=== PATIENT | male | born 2000 | race Caucasian/White ===

== ENCOUNTER 2021-01-27 12:24 | Observation (INO) | payer MEDICAID, SELFPAY ==
[2021-01-27 12:30] VITALS: BP 139/92; PULSE 114; RESP 15; TEMP 36.4; O2SAT 97; BMI 24.0
--- NOTE | 2021-01-27 12:54 | ED_ITS ---
HPI - Psych General: Chief Complaint: Psychiatric Symptoms Stated Complaint: 96 Time Seen by Provider: 01/27/21 12:41 Source: police Mode of arrival: ambulatory Limitations: no limitations History of Present Illness: HPI Narrative: 20-year-old male patient presents to the emergency department with court order for 96-hour hold. Patient states he was at a [facility] area in [facility] with his girlfriend yesterday, when him and his girlfriend got into an argument which led to bystander calling the police due to yelling and screaming. He told his girlfriend he was going to hurt himself. Affidavit/court order states patient was going to either kill himself or someone else, that he had a gun in the vehicle. He was picked up by [facility] at approximately 6 PM last night. Him and his girlfriend have been together for 7 years. He is not suicidal today. He denies homicidal or suicidal ideation plans or thoughts upon exam. 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 Kidney transplant completed 03/20/2014; kidney biopsy completed 11/25/2020 due to elevated antibodies; biopsy results were negative for acute findings. He states continues on transplant medication and has received them today. He denies fever chills, denies abdominal pain nausea vomiting, denies auditory or visual hallucinations. He reports previous psychiatric admission as a child due to major depression disorder/bipolar disorder. He does not take psychiatric medication. History of same: No Relieving factors: none Exacerbating factors: none Associated psychiatric symptoms: none Associated symptoms: Reports no associated symptoms; Deny depression Treatments prior to arrival: placed on mental health hold Review of Systems General: Reports: 10 or more systems reviewed and unremarkable except in HPI and below Const: Denies: fever(s), chills or diaphoresis Eyes: Denies: blurry vision or eye redness ENMT: Denies: throat pain, dental pain or disequilibrium Card: Denies: chest pain, palpitations or irregular heart rhythm Resp: Denies: dyspnea, productive cough, non-productive cough or wheezing GI: Denies: abdominal pain, nausea or vomiting : Denies: dysuria Musc: Denies: back pain Skin/Breast: Denies: rash or pruritus Neuro: Denies: headache(s), weakness in extremities or behavioral changes Psych: Denies: anxiety, depression, mood swings, panic attacks, sleeping more, change in appetite, irritability or difficulty concentrating [place]/Lymph: Denies: easy bruising PFSH ED PFSH: Medical History (Updated 01/28/21 @ 07:20 by SANDY Pitt) Bipolar disorder Major depressive disorder Surgical History Kidney transplant recipient Physical Exam Const: COMMON NORMALS: no acute distress, patient oriented x3, healthy appearing, alert and well nourished GENERAL APPEARANCE: cooperative, comfortable, well kempt, well developed and well hydrated NUTRITIONAL APPEARANCE: thin ORIENTATION/CONSCIOUSNESS: Yes awake, Yes oriented to person, Yes oriented to place and Yes oriented to time HENMT: COMMON NORMALS: normocephalic, atraumatic, Normal external nose present and moist oral mucous membranes HEAD & SCALP: normal to inspection, normocephalic and atraumatic FACE & SINUS: normal facial exam and face symmetric NOSE: Normal external nose present MOUTH: Normal oral and palatal mucosa present, lip normal and tongue normal THROAT: posterior oropharynx normal, tonsils normal and uvula midline Eye: COMMON NORMALS: Equal, round and reactive pupils present and EOMs intact bilaterally GENERAL EYE: appearance normal, both eyes and all related structures PUPIL: Yes Equal, round and reactive pupils present Neck/C-Spine: COMMON NORMALS: full ROM and no lymphadenopathy GENERAL: Yes normal visual inspection and Yes trachea midline CERVICAL SPINE: Yes cervical ROM normal Lymph: LYMPHATIC: no lymphadenopathy noted Chest: COMMONS NORMALS: normal inspection of the chest and normal palpation of entire chest wall Resp: COMMON NORMALS: normal respiratory effort, No retractions, No use of accessory muscles and clear to auscultation bilaterally EFFORT & INSPECTION: Yes able to speak in complete sentences AUSCULTATION: clear to auscultation bilaterally Cardio: COMMON NORMALS: regular rate, regular rhythm, S1 normal heart sound present, S2 normal heart sound present and Peripheral pulses 2+ throughout RATE: regular rate RHYTHM: regular rhythm HEART SOUNDS: S1 normal heart sound present and S2 normal heart sound present PERIPHERAL PULSES: Peripheral pulses 2+ throughout GI: COMMON NORMALS: Normal to inspection, nondistended, normoactive bowel sounds present, Soft to palpation and non-tender INSPECTION: Yes normal to inspection, No abdominal wall ecchymosis, No abdominal distension, No central obesity and Yes scar PALPATION: Yes Soft to palpation : COMMON NORMALS: Yes no CVA tenderness BLADDER/KIDNEY EXAM: Yes no CVA tenderness Back/Pelvis: COMMON NORMALS: no CVA tenderness, thoracic and lumbar spine normal to inspection, no thoracic nor lumbar tenderness, thoraco-lumbar ROM normal and straight leg raise negative bilaterally Extremity: COMMON NORMALS: normal to inspection, full ROM, capillary refill normal, no joint enlargement, no clubbing, cyanosis or edema, no calf tenderness and no pedal edema GENERAL: Yes normal exam except as noted Neuro: NAYELY COMA SCALE: document GCS findings Nayely coma scale eye opening: Spontaneous [place] coma scale verbal response: Orientated Nayely coma scale motor response: Obey commands Nayely coma scale total score: 15 COMMON NORMALS: patient oriented x3 and no focal motor deficits SENSORIUM/ORIENTATION: Yes alert, Yes oriented to person, Yes oriented to place and Yes oriented to time SPEECH: speech normal GAIT: Yes Normal gait present MOTOR EXAM: 5/5 motor strength present throughout Psych: COMMON NORMALS: mental status grossly normal, Normal thought process present, cooperative, normal affect, speech normal, activity/motor behavior normal, denies hallucinations, denies homicidal ideation and denies suicidal ideation APPEARANCE: Yes grossly normal and Yes well kempt ATTITUDE: Yes calm ACTIVITY/MOTOR BEHAVIOR: Yes appropriate eye contact SPEECH: Yes normal speech MOOD & AFFECT: No depressed mood, No anxious, No irritable, No sad, No tearful, No fearful and No Labile affect present THOUGHT PROCESS: Normal thought process present THOUGHT CONTENT: Yes Normal thought content present ATTENTION/CONCENTRATION: Yes attention grossly intact MEMORY/COGNITION: Yes memory grossly intact INSIGHT: Good insight present (Psych) JUDGEMENT: Good judgement present (Psych) Skin: COMMON NORMALS: no rashes or lesions noted, no wounds, turgor normal, no petechiae and no mottling GENERAL SKIN EXAM: no rashes or lesions noted, elasticity normal and turgor normal MDM - Psych Lab Data: Labs: Lab Results 01/27/21 01/27/21 01/27/21 Range/Units 12:43 12:43 12:43 WBC 10.6 H (4.0-10.0) 10^3/ uL RBC 4.55 (4.1-5.3) 10^6/u L Hgb 14.3 (11.7-16.6) g/dL Hct 42.9 (42.0-52.0) % MCV 94.3 H (80-94) fL MCH 31.4 (28.0-34.0) pg MCHC 33.3 (30.0-36.0) g/dL RDW 13.3 (12.1-15.1) % Plt Count 309 (130-400) 10^3/c mm MPV 10.1 (7.4-10.4) fL Neut % (Auto) 78.7 % Lymph % (Auto) 10.9 % [place] % (Auto) 9.4 % Eos % (Auto) 0.3 % Baso % (Auto) 0.1 % Neut # (Auto) 8.36 H (1.8-7.7) 10^3/u L Lymph # (Auto) 1.2 (0.8-4.8) 10^3/u L [place] # (Auto) 1.0 H (0.2-0.9) 10^3/u L Eos # (Auto) 0.0 (0.0-0.8) 10^3/u L Baso # (Auto) 0.0 (0.0-0.1) 10^3/u L Nucleated RBC % (a uto) 0 % Nucleated RBCs # 0.0 /100WBC ESR 10 (0-10) mm/hr Sodium 140 (136-145) mmol/L Potassium 4.1 (3.5-5.1) mmol/L Chloride 103 (98-107) mmol/L Carbon Dioxide 24 (22-29) mmol/L Anion Gap 17.1 (5-19) BUN 14 (6-20) mg/dL Creatinine 1.1 (0.7-1.2) mg/dL GFR Calculation 84.5 L (90-130) mL/min Glucose 96 (65-115) mg/dL Calculated Osmolal ity 290 (285-295) mOsm/k g Calcium 9.6 (8.5-10.5) mg/dL Total Bilirubin 0.7 (0.15-1.2) mg/dL AST 11 (0-40) U/L ALT 13 (0-41) U/L Alkaline Phosphata se 69 (40-130) IU/L Total Protein 7.9 (6.6-8.7) g/dL Albumin 4.7 (3.5-5.2) g/dL Globulin 3.2 (1.3-4.6) g/dL Urine Color (Yellow) Urine Appearance (CLEAR) Urine pH (5-7) Ur Specific Gravit y (1.005-1.030) Urine Protein (Negative) Urine Glucose (UA) (Normal) Urine Ketones (Negative) Urine Blood (Negative) Urine Nitrate (Negative) Urine Bilirubin (Negative) Urine Urobilinogen (Negative) mg/dL Ur Leukocyte Agnse ase (Negative) Urine RBC (0-2) /hpf Urine WBC (0-5) /hpf Ur Squamous Epith Cells (0-5) /hpf Amorphous Sediment /hpf Urine Bacteria (NONE) /hpf Urine Mucus /hpf Salicylates 0.4 L (3-10) mg/dL Urine Opiates Scre en (Negative) ng/mL Acetaminophen < 5.0 L (10-30) ug/mL Ur Barbiturates Sc reen (Negative) ng/mL Ur Phencyclidine S crn (Negative) ng/mL Ur Amphetamines Sc reen (Negative) ng/mL U Benzodiazepines Scrn (Negative) ng/mL Urine Cocaine Scre en (Negative) ng/mL U Marijuana (THC) Screen (Negative) ng/mL Ethyl Alcohol < 10 (0-10) mg/dL 01/27/21 01/27/21 Range/Units 12:59 12:59 WBC (4.0-10.0) 10^3/ uL RBC (4.1-5.3) 10^6/u L Hgb (11.7-16.6) g/dL Hct (42.0-52.0) % MCV (80-94) fL MCH (28.0-34.0) pg MCHC (30.0-36.0) g/dL RDW (12.1-15.1) % Plt Count (130-400) 10^3/c mm MPV (7.4-10.4) fL Neut % (Auto) % Lymph % (Auto) % [place] % (Auto) % Eos % (Auto) % Baso % (Auto) % Neut # (Auto) (1.8-7.7) 10^3/u L Lymph # (Auto) (0.8-4.8) 10^3/u L [place] # (Auto) (0.2-0.9) 10^3/u L Eos # (Auto) (0.0-0.8) 10^3/u L Baso # (Auto) (0.0-0.1) 10^3/u L Nucleated RBC % (a uto) % Nucleated RBCs # /100WBC ESR (0-10) mm/hr Sodium (136-145) mmol/L Potassium (3.5-5.1) mmol/L Chloride (98-107) mmol/L Carbon Dioxide (22-29) mmol/L Anion Gap (5-19) BUN (6-20) mg/dL Creatinine (0.7-1.2) mg/dL GFR Calculation (90-130) mL/min Glucose (65-115) mg/dL Calculated Osmolal ity (285-295) mOsm/k g Calcium (8.5-10.5) mg/dL Total Bilirubin (0.15-1.2) mg/dL AST (0-40) U/L ALT (0-41) U/L Alkaline Phosphata se (40-130) IU/L Total Protein (6.6-8.7) g/dL Albumin (3.5-5.2) g/dL Globulin (1.3-4.6) g/dL Urine Color Yellow (Yellow) Urine Appearance Clear (CLEAR) Urine pH 6.5 (5-7) Ur Specific Gravit y 1.015 (1.005-1.030) Urine Protein Neg (Negative) Urine Glucose (UA) Norm (Normal) Urine Ketones 1+ H (Negative) Urine Blood Neg (Negative) Urine Nitrate Negative (Negative) Urine Bilirubin Neg (Negative) Urine Urobilinogen Norm (Negative) mg/dL Ur Leukocyte Agnes ase Trace H (Negative) Urine RBC None (0-2) /hpf Urine WBC 15-25 H (0-5) /hpf Ur Squamous Epith Cells None (0-5) /hpf Amorphous Sediment 1+ /hpf Urine Bacteria 2+ H (NONE) /hpf Urine Mucus Trace /hpf Salicylates (3-10) mg/dL Urine Opiates Scre en Negative (Negative) ng/mL Acetaminophen (10-30) ug/mL Ur Barbiturates Sc reen Negative (Negative) ng/mL Ur Phencyclidine S crn Negative (Negative) ng/mL Ur Amphetamines Sc reen Negative (Negative) ng/mL U Benzodiazepines Scrn Negative (Negative) ng/mL Urine Cocaine Scre en Negative (Negative) ng/mL U Marijuana (THC) Screen Negative (Negative) ng/mL Ethyl Alcohol (0-10) mg/dL Discharge Plan Discharge Patient Disposition: Admitted As Inpatient Admit Provider: Carter Mullins Clinical Impression: Depression, Suicidal ideation Condition: Stable Coding Level of Care Code ED Rotary Kiln Operator for Luisa Fwd Exam Comprehensive
--- NOTE | 2021-01-27 13:16 | PC.NURSE ---
patient denied any thoughts of harm self or others at this time. no acute distress noted
[2021-01-27 13:20] LABS: Basophils % 0.1 %; Eosinophils % 0.3 %; Hematocrit 42.9 % (42.0-52.0); Hemoglobin 14.3 g/dL (11.7-16.6); Lymphocytes # 1.2 10^3/uL (0.8-4.8); Lymphocytes % 10.9 %; Mean Corpuscular HGB Conc 33.3 g/dL (30.0-36.0); Mean Corpuscular Hemoglobin 31.4 pg (28.0-34.0); Mean Corpuscular Volume 94.3 fL (80-94); Mean Platelet Volume 10.1 fL (7.4-10.4); Monocytes % 9.4 %; Neutrophils # 8.36 10^3/uL (1.8-7.7); Neutrophils % 78.7 %; Nucleated Red Blood Cells % 0 %; Platelet Count 309 10^3/cmm (130-400); Red Blood Count 4.55 10^6/uL (4.1-5.3); Red Cell Distribution Width 13.3 % (12.1-15.1); White Blood Count 10.6 10^3/uL (4.0-10.0)
[2021-01-27 13:27] LABS: Alanine Aminotransferase 13 U/L (0-41); Albumin Level 4.7 g/dL (3.5-5.2); Alkaline Phosphatase 69 IU/L (40-130); Anion Gap 17.1 (5-19); Aspartate Amino Transferase 11 U/L (0-40); Blood Urea Nitrogen 14 mg/dL (6-20); Calcium 9.6 mg/dL (8.5-10.5); Carbon Dioxide 24 mmol/L (22-29); Chloride 103 mmol/L (98-107); Globulin 3.2 g/dL (1.3-4.6); Glomerular Filtration Rate 84.5 mL/min (90-130); Glucose 96 mg/dL (65-115); Osmolality Calculated 290 mOsm/kg (285-295); Potassium 4.1 mmol/L (3.5-5.1); Salicylate 0.4 mg/dL (3-10); Sodium 140 mmol/L (136-145); Total Bilirubin 0.7 mg/dL (0.15-1.2); Total Protein 7.9 g/dL (6.6-8.7)
[2021-01-27 13:29] LABS: Acetaminophen < 5.0 ug/mL (10-30); Alcohol Level < 10 mg/dL (0-10)
--- NOTE | 2021-01-27 13:46 | PC.PHAR ---
PT STATES HE TAKES CARE OF HIS OWN MEDICATIONS-NOTES ARE MADE ON EACH RX IN THE PHARMACY COMMENT SECTION-PT STATE HE TAKES ENVARSUS XR-PT STATES HE TOOK TODAY-[facility] LAST FILLED ON 11/28/20 90D/S FOR 4 TABS DAILY-PT STATES IT WAS INCREASED TO 8MG PO DAILY ON December OR -PT STATES HE TAKES MYFORTIC 360MG-[facility] IN [place] STATES THEY HAVE THIS ON HOLD FOR 12/03/20 FOR 360MG BID-PT STATES HE HAD SOME OF THIS MEDICATION AND ONLY TAKES ONCE A DAY-PT STATES HE TAKES PREDNISONE-PT STATES HE IS ON A TITRATING DOSE PT STATES HE IS ON 10MG DAILY FOR MAYBE ANOTHER WEEK THEN STATES HE IS SUPPOSE TO TAKE 5MG DAILY -EXT MED HISTORY SHOWS LAST FILLED ON 12/03/20 25D/S-PT STATES HE TAKES ROPINIROLE-PT STATES HE HAS A BUILD UP OF THIS MEDICATION-[facility] LAST FILLED ON 12/03/20 30D/S-FILLED IN DECEMBER BUT WASNT PICKED UP
[2021-01-27 13:57] LABS: Amphetamines Screen Urine Negative (Negative); Barbiturates Screen Urine Negative (Negative); Benzodiazepines Screen Urine Negative (Negative); Cocaine Screen Urine Negative (Negative); Opiate Screen Urine Negative (Negative); PCP Screen Urine Negative (Negative); THC Screen Urine Negative (Negative)
[2021-01-27 14:10] VITALS: BP 136/84; PULSE 89; RESP 16; O2SAT 99
[2021-01-27 14:11] LABS: Erythrocyte Sedimentation Rate 10 mm/hr (0-10)
[2021-01-27 14:37] LABS: Glucose Urine UA Norm (Normal); Ketones Urine 1+ (Negative); Protein Urine Neg (Negative); Specific Gravity, Urine 1.015 (1.005-1.030); Urine Appearance Clear (CLEAR); Urine Color Yellow (Yellow); pH Urine 6.5 (5-7)
[2021-01-27 14:38] LABS: Add Urine Microscopic? YES; Bilirubin Urine Neg (Negative); Blood Urine Neg (Negative); Leukocyte Esterase Urine Trace (Negative); Nitrate Urine Negative (Negative); Urobilinogen Urine Norm (Negative)
[2021-01-27 14:45] LABS: Add Urine Culture? Yes; Amorphous Sediment Urine 1+ /hpf; Bacteria Urine 2+ /hpf; Mucus Urine TRACE /hpf; WBC Urine 15-25 /hpf (0-5)
[2021-01-27] MEDS: azithromycin 250 mg Tablet 2000 MG PO (16:22)
[2021-01-27 16:31] VITALS: BP 145/79; PULSE 95; RESP 16; O2SAT 99
[2021-01-27 17:14] VITALS: BP 142/84; PULSE 116; RESP 20; TEMP 36.2; O2SAT 98
[2021-01-27 20:06] VITALS: BP 122/73; PULSE 97; RESP 17; TEMP 36.8; O2SAT 99
[2021-01-28] MEDS: ropinirole 0.25 mg Tablet 0.5 MG PO (03:34)
--- NOTE | 2021-01-28 04:10 | PC.NURSE ---
The patient takes Myfortic 360 mg po bid and Envarsis XR 8 mg po daily. The patient was released from [facility] 01/27/21. The 2 meds listed above [facility] the [facility]. Called [facility], , and spoke to life science technical officer, Slick Payton to inquire about obtaining the meds. Slick called his superior and was instructed to transport the medications to the [facility]. Called [employer] in hospital security to notify that an officer from [facility] is en route to this facility.
[2021-01-28 06:00] VITALS: BP 120/68; PULSE 97; RESP 16; TEMP 36.5; O2SAT 98
--- NOTE | 2021-01-28 12:25 | PM.SDS ---
Short Stay Summary Providers Date of Admit/Discharge: 01/28/21 Attending Provider: Carter Mullins MD Primary Care Provider: Flako Crabtree MD Chief Complaint: 96 HPI History of Present Illness PHANI QUINTEROS is a 20 year old male who presented to the emergency department with the following report: Chief Complaint: Psychiatric Symptoms Stated Complaint: 96 Time Seen by Provider: 01/27/21 12:41 Source: police Mode of arrival: ambulatory Limitations: no limitations History of Present Illness: HPI Narrative: 20-year-old male patient presents to the emergency department with court order for 96-hour hold. Patient states he was at [facility] area in [facility] with his girlfriend yesterday, when him and his girlfriend got into an argument which led to bystander calling the police due to yelling and screaming. He told his girlfriend he was going to hurt himself. Affidavit/court order states patient was going to either kill himself or someone else, that he had a gun in the vehicle. He was picked up by [facility] at approximately 6 PM last night. Him and his girlfriend have been together for 7 years. He is not suicidal today. He denies homicidal or suicidal ideation plans or thoughts upon exam. 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 Kidney transplant completed 03/20/2014; kidney biopsy completed 11/25/2020 due to elevated antibodies; biopsy results were negative for acute findings. He states continues on transplant medication and has received them today. He denies fever chills, denies abdominal pain nausea vomiting, denies auditory or visual hallucinations. He reports previous psychiatric admission as a child due to major depression disorder/bipolar disorder. He does not take psychiatric medication. History of same: No Relieving factors: none Exacerbating factors: none Associated psychiatric symptoms: none Associated symptoms: Reports no associated symptoms; Deny depression Treatments prior to arrival: placed on mental health hold. Phani was admitted to the neuropsychiatric unit for definitive treatment of those issues. He presents today reporting that things are going better, but yesterday was a rough day for the last 24 to 36 hours. He reports that he had an inpatient hospitalization once in his life when he was about 11 or 12 and had follow-up treatment for some period of time, but he has not been on medication and treatment for a long time. He reports that he does not smoke cigarettes, drink alcohol with any regularity, smoke weed, or any other illicit drugs. He has never been to a rehab or had a DUI. He reports that he had a conflict with his girlfriend who he has been dating for seven years, and he reports that they went on a ride together that quickly deteriorated. She was wanting to take his phone and smash it, and he ended up getting her phone and the car was moving erratically so they pulled over and had a conversation outside in the nature area. The argument got loud, and someone overheard them and there may have been a call to authorities. Ultimately, they got back in the car and started driving towards her house and police saw him and pulled him over. He was arrested. She told them some comments that he made, that he acknowledged about having suicidal thoughts, and he was arrested and detained at the police facility overnight. They then brought him to [facility], and he was ultimately admitted to the unit. He reports that their relationship is very fraught with difficulties due to some of her mental health issues and he feels that reconnecting with her is a bad idea. They had been living together until October at which time they and were going back and forth where he would stay with friends versus staying there where they had lived together. He reports that now he has no place to go, but he did talk to his mother last night and she is supportive and saying he can come there and stay for a few days and get things together. His brother is there, and they are very supportive. He reports that he does not feel there is any need for medications at this time. He just needs to deal with the fact that the relationship is over and find work and ultimately his own place and move on. We discussed the risks, benefits, and alternatives of different medications and approaches, and he understood and agreed to proceed as is documented in this note. PSYCHIATRIC HISTORY: As above. SUBSTANCE ABUSE HISTORY: As above. FAMILY HISTORY: He denied mental health issues on either side of the family. He endorsed addiction issues on both sides of the family and reports he did have a paternal uncle or half-uncle that committed suicide in 2006. DEVELOPMENTAL HISTORY: He reports that there are no issues with his mom?s or delivery of him, but he was born with a congenital kidney condition that meant that he would have to have surgery at some point in his life. He learned to walk and talk and met his developmental milestones on time. He reports he did have speech therapy for assistance with his S & R?s, but denied any learning support, emotional support, or special education classes. PSYCHOSOCIAL HISTORY: He reports his mother and father were together when he was born and stayed together until 2008. He has a younger brother and an older sister that are the products of that same union. His mother had two other daughters, but one shortly after . He is unsure if his dad had any other children. He reports his childhood was normal and he denied any emotional, physical, or sexual abuse. The highest grade he reached in high school was the 10th or 11th grade. He was working on his [employer] when [employer] struck. He is a heterosexual with his longest relationship being seven years. He has never been , he has no biological children, he has never been in the , he has no temple belief system. He reports his longest job was three days in 2017. He is currently on medical disability. He is homeless. LEGAL HISTORY: He has been to senior living, one time yesterday. MEDICAL HISTORY: He reports that he was born with this congenital kidney issue secondary to the urine not being able to get out of his body and backing back up, being very destructive to his kidney structure. The doctors knew eventually he would have to have kidney surgery and ultimately when he was around 14 years old, he did have a kidney transplant and he takes rejection medication. In November he had an increase antibody that worried his transplant specialist and so he went in then and had three days of dialysis but has not had any problems since then. MENTAL STATUS EXAMINATION: This is a well-nourished, well-developed, white male, with adequate dress, grooming, and eye contact. No abnormal movements. Cooperative with exam in no acute distress. Speech was slightly decreased rate and volume. Mood described as a little better; affect congruent. Thought process, organized. Thought content: patient denied any suicidal or homicidal ideation, there were no delusions reported or noted, patient denied any auditory or visual hallucinations. Attention, concentration, and memory appear intact but were not formally tested. He is alert and oriented times three. Insight and judgment are fair to good. ASSESSMENT AND DIAGNOSIS: This is a 20 year old, white male, with a history of mental health issues, who presents with adjustment disorder secondary to conflict in his relationship with his first love, who presents after he was put on a 96-hour hold because of suicidal statements that were made, that he is denying at this point. RECOMMENDATION AND PLAN: 1. Will not initiate medication. 2. Will continue q-15-minute check for safety. 3. Encourage individual, group, and milieu therapy. 4. Do not see credible lethality present. Will discharge with his mother. Home Meds/Allergies Home Medications and Allergies Home Medications Medication Instructions Recorded Confirmed Type Envarsus XR 8 mg PO DAILY 01/27/21 01/27/21 History mycophenolate sodium [Myfortic] 360 mg PO BID@0900,2100 01/27/21 01/28/21 History prednisone See Rx Instructions .ROUTE .COMPLEX 01/27/21 01/27/21 History ropinirole 0.5 mg PO BEDTIME 01/27/21 01/27/21 History Allergies Allergy/AdvReac Type Severity Reaction Status Date / Time cefaclor [From Ceclor] Allergy ALGY-Hives Verified 01/27/21 12:41 retuximab Allergy ALGY-Swell Uncoded 01/27/21 12:41 Lip/Tongue/Throat PFSH Acute PFSH: Medical History (Updated 01/28/21 @ 14:53 by Carter Mullins MD) Bipolar disorder Major depressive disorder Surgical History Kidney transplant recipient Vitals/I&O/Wt Last Vital Signs Temp 97.7 F 01/28/21 06:00 Pulse 97 01/28/21 06:00 Resp 16 01/28/21 06:00 BP 120/68 01/28/21 06:00 Pulse Ox 98 01/28/21 06:00 Weight last 48 hrs Weight 82.554 kg Weight 82.554 kg Hospital Course Admission Diagnoses Suicidal ideation, depressive disorder unspecified, adjustment disorder with mixed disturbance of emotion and conduct. Hospital Course Phani presented to the emergency department with the police on a 96-hour hold with reports of suicidal ideation, depression and recent break-up from his girlfriend. He was admitted to the neuropsychiatric unit for definitive treatment of those issues. He was evaluated and deemed to be absent from lethality and was able to contract safety prior to discharge. He will not interested in restarting medication from the past or new medication. He showed modest improvement from his presentation in the emergency department. During the hospitalization, patient had routine laboratory studies which were within normal limits except for few outliers. Additionally there was a general medical evaluation which was also within normal limits and revealed no new acute processes. Discharge Summary At the time of discharge, psychosis and lethality were denied. Mood and anxiety were well managed. Patient endorsed a plan to follow-up with the aftercare recommendations of the treatment team. Patient was evaluated and deemed to be absent credible lethality, and had achieved the maximum benefit from an inpatient hospitalization, so was discharged. SSS Data Data Completed and Pending: Pending at discharge Category Date Time Status Chlamydia / Gonor matthieu Panel Stat Lab 01/27/21 12:59 Received Urine Culture Sta t Lab 01/27/21 12:59 Received Diagnoses at Discharge Discharge Diagnosis (1) Adjustment disorder with mixed disturbance of emotions and conduct: Status: Acute (2) Depression: Status: Acute Qualifiers: Depression Type: unspecified Qualified Code(s): F32.9 - Major depressive disorder, single episode, unspecified (3) Suicidal ideation: Status: Acute Discharge Plan Discharge Patient Disposition: Home Condition: Stable Prescriptions: Continued prednisone 10 mg Tablet See Rx Instructions .ROUTE .COMPLEX RF: 0 ropinirole 0.5 mg tablet 0.5 mg PO BEDTIME RF: 0 mycophenolate sodium [Myfortic] 360 mg Tablet,Delayed Release (Dr/Ec) 360 mg PO BID@0900,2100 RF: 0 Envarsus XR 1 mg Tablet Extended Release 24 Hr 8 mg PO DAILY RF: 0 Discharge Orders: Discharge Order (Routine); Ordered 01/28/21 Ordered By: Carter Mullins Discharge Diet: Regular Discharge Activity: Resume usual activity Patient Instructions: Opioid Safety Attestations Medical Necessity Statement*: Inpatient hospitalization is no longer medically necessary or the clinically appropriate intervention, at this time. Recommending outpatient services only. Will discharge to home. Time Spent in Patient Care*: greater than 30 min Specific Discharge Activities: Specific discharge activities: educating patient, discussing with case briefer/social workers/dc planners, documenting/other paperwork and evaluating patient/reviewing data Quality Metrics Clinical Quality Measures: During this hospital stay, did patient experience: None Coding Level of Care Code Acute Television Analyzer for Luisa Fwd Diagnoses Adjustment disorder with mixed disturbance of emotions and conduct F43.25 Depression F32.9 Depression Type: unspecified Suicidal ideation R44.978
[2021-01-28 15:05] VITALS: BP 120/68; PULSE 97; RESP 16; TEMP 36.5; O2SAT 98
== END 2021-01-28 16:22 | disposition home or self-care (01) ==
LOC: ER 12:41 → NP 01-28 07:20
PROVIDERS: Admitting Provider Psychiatry & Neurology Psychiatry; Emergency Provider Nurse Practitioner Family; PCP Family Medicine; Visit Provider Psychiatry & Neurology Psychiatry
DX: R45.851 Suicidal ideations (principal)
CPT/HCPCS: 36415; 80053; 80306; 80307; 81001; 85025; 85651; 87086; 87491; 87591; 96372; 99285; G0378; J1580; Q0144